=== PATIENT | male | born 1930 | race Caucasian/White ===

== ENCOUNTER → 2018-05-22 | Outpatient (CLI) | payer MEDICARE, OTHER ==
[~2018-05-22] MED LIST: ASPIRIN 81M81 MG/TA2 PO; FISH OIL 1000MG1 CAP PO; FLOMAX 0.40.4 MG/CAP PO; LIPITOR 40MG TA40 MG PO; LOPRESSOR100 MG PO; VASOTEC 10M10 MG/TAB PO
== END ==
LOC: ZCOL.LAB 14:19
DX: H60.501 Unspecified acute noninfective otitis externa, right ear (principal)